=== PATIENT | male | born 1975 | race Caucasian/White ===

== ENCOUNTER 2019-02-21 07:54 | Emergency (ER) | payer OTHER ==
[2019-02-21] MEDS ORDERED: BUFFERED LIDOCAINE 10 ML SYRINGE SUBQ STA (08:29)
--- NOTE | 2019-02-21 08:31 | ED Physician Documentation ---
PD HPI HEAD INJURY - Stated complaint Stated Complaint: FACE LAC - Chief complaint Chief Complaint: Laceration - History obtained from History obtained from: Patient, Friend - History of Present Illness Mechanism of head injury: Fell Where head injury occurred: Work Timing - onset: Today Location of injury: Right, Front Quality of pain: Pain Associated symptoms: No: LOC, AMS, Amnesia, Nausea / vomiting, Neck pain, Paresthesias, Seizures, Ear drainage, Nasal drainage Symptoms improve with: Rest, Ice Symptoms worsen with: Palpation, Movement Contributing factors: No: Anticoagulated Similar symptoms before: Has not had sx before Recently seen: Not recently seen - Additional information Additional information: 43-year-old male was walking outside slipped on the ice fell forward was unable to catch himself entirely struck the right side of his face saw stars briefly yasmeen himself. He did not have any loss of consciousness he denies any dizziness trouble concentrating or nausea denies any neck pain he does have some pain in the right shoulder and he does have a headache. He has a laceration to the right lateral eyebrow. Review of Systems Constitutional: denies: Fever, Chills Eyes: denies: Decreased vision Ears: denies: Ear pain Nose: denies: Congestion Throat: denies: Sore throat Respiratory: denies: Dyspnea, Cough GI: denies: Vomiting Skin: denies: Rash Musculoskeletal: reports: Extremity pain, Joint pain. denies: Neck pain, Back pain Neurologic: reports: Headache, Head injury. denies: Generalized weakness, Focal weakness, Numbness, Difficulty speaking, Seizure, Confused, Altered mental status, LOC PD PAST MEDICAL HISTORY - Past Medical History Cardiovascular: None Respiratory: None Endocrine/Autoimmune: None GI: None : None HEENT: Chronic vision loss Psych: None Musculoskeletal: None Derm: None - Past Surgical History Ortho: ACL reconstruction HEENT: Tonsil/Adenoidectomy - Present Medications Home Medications: Ambulatory Orders Medication Instructions Recorded Confirmed Cyclobenzaprine [Flexeril] 10 mg PO TID PRN #20 tablet 07/25/15 Hydrocodone/Acetaminophen 1 - 2 each PO Q6H PRN #14 tablet 07/25/15 [Hydrocodon-Acetaminophen 5-325] - Allergies Allergies/Adverse Reactions: Allergies Allergy/AdvReac Type Severity Reaction Status Date / Time No Known Drug Allergies Allergy Verified 02/21/19 08:22 - Social History Does the pt smoke?: No Smoking Status: Never smoker Does the pt drink ETOH?: No Does the pt have substance abuse?: No - Immunizations Immunizations are current?: Yes PD ED PE NORMAL - Vitals Vital signs reviewed: Yes - General General: Alert and oriented X 3, No acute distress, Well developed/nourished - HEENT HEENT: PERRL, EOMI, Other (There is a 3 cm stellate laceration to the right lateral eyebrow.There is no crepitance to suggest fracture. The laceration does not involve deeper structures.) - Neck Neck: Supple, no meningeal sign, No bony TTP - Respiratory Respiratory: No respiratory distress - Derm Derm: Normal color, Warm and dry, No rash - Extremities Extremities: No deformity, No edema, No calf tenderness / cord - Neuro Neuro: Alert and oriented X 3, administrative coordinator 2-12 intact, No motor deficit, No sensory deficit, Normal speech Eye Opening: Spontaneous Motor: Obeys Commands Verbal: Oriented GCS Score: 15 - Psych Psych: Normal mood, Normal affect Results - Vitals Vitals: Vital Signs - 24 hr 02/21/19 08:00 Temperature 36.7 C Heart Rate 89 Respiratory 17 Rate Blood Pressure 155/96 H O2 Saturation 98 Oxygen O2 Source Room air Procedures - Laceration (location) face Length in cm: 3 Wound type: Stellate, Into subcut fat, Clean Neurovascular status: Sensory intact, Motor intact Anesthesia: Lidocaine 1%, With bicarb Wound Preparation: Hibiclens, Irrigated copiously NS, Wound explored, To the base Skin layer closure: Nylon, Size #-0 - enter number (6-0), Sutures - enter # (7) Other: Patient tolerated well, No complications, Neurovascular intact, Tetanus UTD Complexity: Simple PD MEDICAL DECISION MAKING - ED course Complexity details: considered differential, d/w patient ED course: 43-year-old male with a laceration to the right eyebrow is sutured and tolerates this well. He is up-to-date on his immunizations. Departure - Departure Disposition: 01 Home, Self Care Clinical Impression: Eyebrow laceration Qualifiers: Encounter type: initial encounter Laterality: right Qualified Code(s): S01.111A - Laceration without foreign body of right eyelid and periocular area, initial encounter Condition: Stable Instructions: ED Laceration Facial Sutr Tape Follow-Up: BRAULIO Pokl [Provider Group] Comments: Sutures will need to be removed in 5 to 6 days.
[2019-02-21] MEDS ORDERED: ACETAMINOPHEN 325 MG TABLET PO STA (09:10)
[2019-02-21] MEDS ORDERED: BACITRACIN ZINC OINT 1 PACKET TOP STA (09:10)
[2019-02-21 09:29] VITALS: BP 128/88
== END 2019-02-21 09:30 | disposition home or self-care (01) ==
LOC: ED 07:54
DX: S01.111A Laceration without foreign body of right eyelid and periocular area, initial encounter (principal); M25.511 Pain in right shoulder; W00.0XXA Fall on same level due to ice and snow, initial encounter; Y93.01 Activity, walking, marching and hiking
CPT/HCPCS: 12013; 99282; 99284; A9270

== ENCOUNTER 2019-06-16 21:54 | Emergency (ER) | payer OTHER ==
[2019-06-16] MEDS ORDERED: KETOROLAC 60 MG/2 ML VIAL IM STA (22:21)
[2019-06-16] MEDS ORDERED: HYDROmorphone 1 MG/ML CARPUJECT IM STA ×2 (22:21→22:53)
--- NOTE | 2019-06-16 22:26 | ED Physician Documentation ---
PD HPI BACK PAIN - Stated complaint Stated Complaint: BACK PX - Chief complaint Chief Complaint: Back Pain - History obtained from History obtained from: Patient (43-year-old gentleman with history of occasional back pain developed right-sided back pain this evening without specific trauma. It is much worse with movements or twisting. It does not radiate. No abdominal pain, no nausea, no urinary complaints. No weakness, numbness, same tingling, saddle anesthesia, or fevers. At home he tried a hot bath, lidocaine patch, icy hot, and ibuprofen without relief.) Review of Systems Constitutional: denies: Fever, Chills Cardiac: denies: Chest pain / pressure, Palpitations Respiratory: denies: Dyspnea, Cough GI: denies: Abdominal Pain, Nausea, Vomiting PD PAST MEDICAL HISTORY - Past Medical History Past Medical History: No Cardiovascular: None Respiratory: None Endocrine/Autoimmune: None GI: None : None HEENT: Chronic vision loss Psych: None Musculoskeletal: None Derm: None - Past Surgical History Past Surgical History: Yes Ortho: ACL reconstruction HEENT: Tonsil/Adenoidectomy - Present Medications Home Medications: Ambulatory Orders Medication Instructions Recorded Confirmed Cyclobenzaprine [Flexeril] 10 mg PO TID PRN #20 tablet 06/16/19 Hydrocodone/Acetaminophen 1 - 2 each PO Q6H PRN #14 tablet 06/16/19 [Hydrocodon-Acetaminophen 5-325] - Allergies Allergies/Adverse Reactions: Allergies Allergy/AdvReac Type Severity Reaction Status Date / Time No Known Drug Allergies Allergy Verified 06/16/19 22:10 - Social History Does the pt smoke?: No Smoking Status: Never smoker Does the pt drink ETOH?: No Does the pt have substance abuse?: No - Immunizations Immunizations are current?: Yes - POLST Patient has POLST: No PD ED PE NORMAL - Vitals Vital signs reviewed: Yes - General General: Alert and oriented X 3, No acute distress - Abdomen Abdomen: Normal bowel sounds, Soft, Non tender - Back Back: Other (He is clearly reproducible muscle tenderness of the right mid back, there is no midline spinal tenderness. He is comfortable at rest for the most part but winces with pretty much any motion. The patient has equal and normal Achilles and patellar reflexes bilaterally. Normal sensation in all areas of the legs. Patient denies saddle anesthesia. Normal strength in flexion- extension at the ankles, knees, and flexion of the hips.) - Neuro Neuro: Alert and oriented X 3, Normal speech Results - Vitals Vitals: Vital Signs - 24 hr 06/16/19 06/16/19 22:07 23:00 Temperature 36.7 C Heart Rate 79 73 Respiratory 18 16 Rate Blood Pressure 144/84 H 120/71 O2 Saturation 96 95 Oxygen O2 Source Room air PD MEDICAL DECISION MAKING - ED course ED course: This patient has seemingly uncomplicated musculoskeletal back pain. The patient has no "red flags." Specifically denies IV drug use, fevers, incontinence, saddle anesthesia. Spinal epidural abscess was considered, given that the patient has no fever, is not diabetic, has no spinal tenderness, does not use IV drugs, and has no bilateral neurologic symptoms, the diagnosis of spinal epidural abscess is considered exceedingly unlikely. He was treated with divided doses of IM medications with significant improvement in his symptoms and functionality. Departure - Departure Disposition: 01 Home, Self Care Clinical Impression: Back spasm Condition: Good Record reviewed to determine appropriate education?: Yes Instructions: ED Spasm Back No Trauma Prescriptions: Cyclobenzaprine [Flexeril] 10 mg PO TID PRN #20 tablet PRN Reason: Spasms Hydrocodone/Acetaminophen [Hydrocodon-Acetaminophen 5-325] 1 - 2 each PO Q6H PRN #14 tablet PRN Reason: pain Forms: Activity restrictions
[2019-06-16] MEDS ORDERED: HYDROcod/ACET 5/325 Prepack 4 PO STA (22:54)
[2019-06-16] MEDS ORDERED: CYCLOBENZAPRINE 10 MG Prepack 2 PO STA (22:54)
[2019-06-16 23:35] VITALS: BP 122/57
== END 2019-06-16 23:35 | disposition home or self-care (01) ==
LOC: ED 21:54
DX: M62.830 Muscle spasm of back (principal)
CPT/HCPCS: 96372; 99283; J1170

== ENCOUNTER 2019-12-18 16:47 | Emergency (ER) | payer OTHER ==
[2019-12-18] MEDS ORDERED: HYDROmorphone 1 MG/ML CARPUJECT IM STA (19:28)
[2019-12-18] MEDS ORDERED: KETOROLAC 60 MG/2 ML VIAL IM STA (19:29)
--- NOTE | 2019-12-18 19:31 | ED Physician Documentation ---
History of Present Illness - Stated complaint Stated Complaint: BACK PX - Chief complaint Chief Complaint: Back Pain - History of Present Illness Timing: Prior to arrival - Additonal information Additional information: 44-year-old male presents to the emergency department with acute onset low back pain that began this afternoon when he was simply bending down. He felt sudden sharp pain in his lower mid back that now radiates to both sides. He reports that he fell to the floor and could not move his legs for a little bit. Though he denies that he had any numbness. He has had no saddle anesthesia and has voided normally since the back pain began. He does have history of similar seen within the last year at this ER for same. No history of injection drug use or cancer. Denies dysuria urgency or frequency. No fevers. Review of Systems Constitutional: reports: Reviewed and negative Eyes: reports: Reviewed and negative Ears: reports: Reviewed and negative Nose: reports: Reviewed and negative Cardiac: reports: Reviewed and negative Respiratory: reports: Reviewed and negative GI: reports: Reviewed and negative : reports: Reviewed and negative Skin: reports: Reviewed and negative Musculoskeletal: reports: Back pain Neurologic: denies: Generalized weakness, Focal weakness, Numbness PD PAST MEDICAL HISTORY - Past Medical History Past Medical History: Yes Cardiovascular: None Respiratory: None Endocrine/Autoimmune: None GI: None : None HEENT: Chronic vision loss Psych: None Musculoskeletal: None Derm: None - Past Surgical History Past Surgical History: Yes Ortho: ACL reconstruction HEENT: Tonsil/Adenoidectomy - Present Medications Home Medications: Ambulatory Orders Medication Instructions Recorded Confirmed Cyclobenzaprine [Flexeril] 10 mg PO TID PRN #20 tablet 06/16/19 Hydrocodone/Acetaminophen 1 - 2 each PO Q6H PRN #14 tablet 06/16/19 [Hydrocodon-Acetaminophen 5-325] Cyclobenzaprine [Flexeril] 10 mg PO TID PRN #20 tablet 12/18/19 Hydrocodone/Acetaminophen [[place] 1 each PO BID PRN #15 tablet 12/18/19 5-325 Tablet] Ibuprofen [Motrin] 600 mg PO Q6H PRN #30 tab 12/18/19 - Allergies Allergies/Adverse Reactions: Allergies Allergy/AdvReac Type Severity Reaction Status Date / Time No Known Drug Allergies Allergy Verified 12/18/19 17:05 - Social History Does the pt smoke?: No Smoking Status: Never smoker Does the pt drink ETOH?: No Does the pt have substance abuse?: No - Immunizations Immunizations are current?: Yes - POLST Patient has POLST: No PD ED PE EXPANDED - General General: Alert, In Pain - Back Back: Soft tissue tenderness (Lower lumbar tenderness to palpation across the paraspinous muscles. Reduced range of motion secondary to pain. 5 of 5 preserved bilaterally. Normal sensation bilateral lower extremities.), Limited ROM. No: Normal ROM, CVA TTP right, CVA TTP left Results - Vitals Vitals: Vital Signs - 24 hr 12/18/19 17:00 Temperature 36.9 C Heart Rate 90 Respiratory 18 Rate Blood Pressure 134/93 H O2 Saturation 97 Oxygen O2 Source Room air PD MEDICAL DECISION MAKING - ED course Complexity details: reviewed results, re-evaluated patient, considered differential, d/w patient ED course: 43-year-old male presents emergency department for evaluation of acute onset low back pain that occurred when he was bending over this afternoon. He had no red flags, saddle anesthesia, fever. In the emergency department this gentleman was given Dilaudid followed by Toradol as well as Flexeril. He did have mild to moderate relief of his pain. He was able to ambulate though it was antalgic. I will plan to have this gentleman discharged with prescription of ibuprofen and Flexeril as well as as needed hydrocodone. He will [facility]. Emergent return precautions for worrisome symptoms discussed Departure - Departure Disposition: 01 Home, Self Care Clinical Impression: Low back pain Qualifiers: Chronicity: acute Back pain laterality: bilateral Sciatica presence: without sciatica Qualified Code(s): M54.5 - Low back pain Condition: Stable Record reviewed to determine appropriate education?: Yes Instructions: ED Back Care Tips, ED Spasm Back No Trauma Follow-Up: Yanna Hirsch MD [Primary Care Provider] - Prescriptions: Cyclobenzaprine [Flexeril] 10 mg PO TID PRN #20 tablet PRN Reason: Spasms Ibuprofen [Motrin] 600 mg PO Q6H PRN #30 tab PRN Reason: Pain Hydrocodone/Acetaminophen [[place] 5-325 Tablet] 1 each PO BID PRN #15 tablet PRN Reason: Pain Comments: I hope that your back is feeling better soon. It is important to move as much as you can. Walking will help reduce the back spasm. Please follow-up tomorrow with [facility] to discuss this ED visit. I prescribed ibuprofen that I would like you to take 3 times a day with food for the next 4 to 5 days. I have also prescribed Flexeril as a muscle relaxer. Please be very cautious with this it may make you sleepy and unable to drive. I have also prescribed a limited amount of hydrocodone to be used for severe pain only. Please return to the emergency department if you develop fevers, have numbness between your legs, cannot control your bowel or bladder function.
[2019-12-18] MEDS ORDERED: CYCLOBENZAPRINE 10 MG TABLET PO STA (19:57)
[2019-12-18 20:04] VITALS: BP 130/90
== END 2019-12-18 20:02 | disposition home or self-care (01) ==
LOC: ED 16:47
DX: M54.5 Low back pain (principal)
CPT/HCPCS: 96372; 99283; A9270; J1170